=== PATIENT | male | born 1980 | race Caucasian/White ===

== ENCOUNTER 2018-09-15 22:06 | Emergency (ER) | payer OTHER ==
[~2018-09-15] VITALS: Ht 182.9 cm; Wt 91.9 kg
[2018-09-15 22:13] VITALS: BP_SYST 118
[2018-09-15] MEDS ORDERED: IBUPROFEN 200 MG TABLET ONE (22:35)
[2018-09-15] MEDS ORDERED: QUET100T4 PO (22:47)
[2018-09-15] MEDS ORDERED: IBUPROFEN 200 MG TABLET PO ONE (23:00)
== END 2018-09-15 23:43 | disposition home or self-care (01) ==
LOC: ED 23:40
DX: M25.511 Pain in right shoulder (principal)
CPT/HCPCS: 82962; 99283